=== PATIENT | female | born 1960 | race Caucasian/White ===

== ENCOUNTER → 2016-12-16 | Emergency (ER) | payer MEDICAID ==
[~2016-12-16] MED LIST: ALBUTEROL2.5 MG/0.5 NEB; ARTANE PO; ARTIFICIAL TEA1 EACH OPHTH; AZILECT1 MG PO; BIPAP NS; CEFTIN500 MG PO; CELEXA40 MG PO; CIPRO500 MG PO; CLONAZEPAM0.5 MG PO; CLOZAPINE PO; CLOZAPINE100 MG PO; COGENTIN PO; COGENTIN1 MG PO; COLACE100 MG PO; DEXTROSE 50%50 ML IVP; DULERA 200 MCG/51 EA INH; DULERA INH; ESTAZOLAM2 MG PO; FLUCONAZOLE150 MG PO; GLUCAGON/GLUCAGE1 MG SUB-Q; GLUCOSE4 GM PO; HYDRODIURIL12.5 MG PO; KLONOPIN0.5 MG PO; LEVEMIR100 UNIT/1 SUB-Q; LIDOCAINE 1% MD20 M1 IDER; LISINOPRIL-HCT1 EACH PO; LOVENOX40 MG/0.4 SUB-Q; MILK OF MA400 MG/5 M PO; MIRALAX17 GM PO; MYCOSTATIN CREA30 GM TOP; NEURONTIN100 MG PO; NEURONTIN400 MG PO; NOVOLOG100 UNIT/1 SUB-Q; NOVOLOG100 UNIT/M SUB-Q; OXYGEN; PAIN RELIEF650 MG PO; PROSOM PO; TEGRETOL PO; TEGRETOL200 MG PO; TYLENOL650 MG R; ZESTORETIC 10-1 EACH PO; ZESTRIL10 MG PO; ZOCOR20 MG PO; ZOFRAN4 MG IVP; ZYRTEC10 MG PO
== END | disposition disaster alternative care site (69) ==
LOC: GAMB 13:35
DX: R53.1 Weakness (principal); E10.9 Type 1 diabetes mellitus without complications; G20 Parkinson's disease; W19.XXXA Unspecified fall, initial encounter

== ENCOUNTER → 2017-02-04 | Outpatient (CLI) | payer MEDICAID | END | disposition disaster alternative care site (69) | LOC: GAMB 11:35 | DX: T85.9XXA Unspecified complication of internal prosthetic device, implant and graft, initial encounter (principal); E11.9 Type 2 diabetes mellitus without complications; G20 Parkinson's disease; R52 Pain, unspecified | CPT/HCPCS: A0425; A0429 ==

== ENCOUNTER → 2017-04-29 | Outpatient (CLI) | payer MEDICAID | END | disposition disaster alternative care site (69) | LOC: GAMB 01:10 | DX: R29.6 Repeated falls (principal); E10.9 Type 1 diabetes mellitus without complications; G20 Parkinson's disease; W19.XXXA Unspecified fall, initial encounter | CPT/HCPCS: A0425; A0429 ==

== ENCOUNTER → 2017-04-30 | Emergency (ER) | payer MEDICAID | END | disposition disaster alternative care site (69) | LOC: GAMB 15:22 | DX: R53.1 Weakness (principal); E10.9 Type 1 diabetes mellitus without complications; G20 Parkinson's disease; W19.XXXA Unspecified fall, initial encounter ==

== ENCOUNTER → 2017-05-01 | Outpatient (CLI) | payer MEDICAID | END | disposition disaster alternative care site (69) | LOC: GAMB 12:47 | DX: R53.1 Weakness (principal); N39.0 Urinary tract infection, site not specified; E10.9 Type 1 diabetes mellitus without complications; G20 Parkinson's disease; R41.0 Disorientation, unspecified; R29.6 Repeated falls | CPT/HCPCS: A0422; A0425; A0427 ==